=== PATIENT | male | born 1985 | race Caucasian/White ===

== ENCOUNTER 2016-06-01 13:18 | Emergency (ER) | payer OTHER ==
[~2016-06-01] VITALS: Ht 170.2 cm; Wt 69.5 kg
[2016-06-01 14:03] LABS: ADD MIUA? YES; BILIRUBIN NEGATIVE; BLOOD LARGE; COLOR YELLOW ((YELLOW)); GLUCOSE (STRIP) NEGATIVE; KETONES NEGATIVE; LEUKOCYTES NEGATIVE; NITRITE NEGATIVE; PH, URINE 7.5 (5-8); PROTEIN (STRIP) NEGATIVE; SPECIFIC GRAVITY 1.011 (1.000-1.030); UROBILINOGEN 0.2 MG/DL (0.2-1.0)
[2016-06-01 14:14] LABS: HEMATOCRIT 46.4 % (38.0-50.0); MCH 28.6 PG (29.0-34.0); MCHC 34.9 G/DL (30.0-36.0); MCV 81.8 FL (86-99); MEAN PLAT.VOLUME 8.5 uM^3 (9.0-12.4); PLATELET COUNT 273 K/uL (156-360); RBC DIS.WIDTH-CV 12.5 % (11.8-14.6); RBC DIS.WIDTH-SD 36.9 % (39-53); RED BLOOD COUNT 5.67 M/uL (4.00-5.50); WHITE BLOOD COUNT 7.9 K/uL (4.1-10.2)
[2016-06-01 14:21] LABS: CHLORIDE 106 mEq/L (99-109)
[2016-06-01 14:22] LABS: POTASSIUM 4.1 mEq/L (3.7-5.4); SODIUM 138 mEq/L (136-147)
[2016-06-01 14:24] LABS: GLUCOSE 106 mg/dL (70-99)
[2016-06-01 14:25] LABS: ANION GAP 7 MEQ/L (2-14)
[2016-06-01 14:26] LABS: TOTAL BILIRUBIN 0.5 mg/dL (0.0-1.0)
[2016-06-01 14:27] LABS: ALKALINE PHOSPHATASE 57 IU/L (3-129)
[2016-06-01 14:29] LABS: DIRECT BILIRUBIN 0.2 mg/dL (0.0-0.3); UREA NITROGEN (BUN) 9 mg/dL (9-23)
[2016-06-01 14:31] LABS: GFR ESTIMATE (CALCULATED) > 59 mL/min/; LIPASE 19 U/L (1.0-51.0)
[2016-06-01 14:47] LABS: EPITHELIAL CELLS NONE SEEN; MUCUS NONE SEEN; RED BLOOD CELLS 15-20 /HPF (0-5); WHITE BLOOD CELLS NONE SEEN /HPF (0-5)
[2016-06-01 14:48] LABS: BACTERIA RARE; CASTS NONE SEEN /LPF; CRYSTALS NONE SEEN; UCUL ADDED? NO
[2016-06-01 16:18] VITALS: BP 142/81
== END 2016-06-01 16:39 | disposition home or self-care (01) ==
LOC: EME 13:18 → RME 13:18
DX: R10.84 Generalized abdominal pain (principal); R31.9 Hematuria, unspecified; Z87.442 Personal history of urinary calculi; Z88.0 Allergy status to penicillin
CPT/HCPCS: 74176; 80048; 80076; 81003; 83690; 85027; 99281; 99284; J1885

== ENCOUNTER 2016-09-18 16:48 | Emergency (ER) | payer OTHER ==
[~2016-09-18] VITALS: Ht 170.2 cm; Wt 83.2 kg
[2016-09-18 17:42] LABS: HEMATOCRIT 41.9 % (38.0-50.0); MCH 27.9 PG (29.0-34.0); MCHC 33.7 G/DL (30.0-36.0); MEAN PLAT.VOLUME 8.7 uM^3 (9.0-12.4); PLATELET COUNT 287 K/uL (156-360); RBC DIS.WIDTH-CV 12.1 % (11.8-14.6); RBC DIS.WIDTH-SD 36.4 % (39-53); RED BLOOD COUNT 5.05 M/uL (4.00-5.50)
[2016-09-18 17:52] LABS: CHLORIDE 104 mEq/L (99-109); POTASSIUM 3.7 mEq/L (3.7-5.4); SODIUM 140 mEq/L (136-147)
[2016-09-18 17:53] LABS: GLUCOSE 114 mg/dL (70-99)
[2016-09-18 17:55] LABS: ANION GAP 11 MEQ/L (2-14)
[2016-09-18 17:57] LABS: GFR ESTIMATE (CALCULATED) > 59 mL/min/
[2016-09-18 17:58] LABS: UREA NITROGEN (BUN) 14 mg/dL (9-23)
[2016-09-18] MEDS ORDERED: PERCOCET 5/31 TABLET PO (20:09)
[2016-09-18 21:15] VITALS: BP 147/94
== END 2016-09-18 21:20 ==
LOC: EME 16:48
PROVIDERS: Emergency Medicine
DX: L03.114 Cellulitis of left upper limb (principal); Z86.14 Personal history of Methicillin resistant Staphylococcus aureus infection; Z87.891 Personal history of nicotine dependence
CPT/HCPCS: 80048; 85027; 87040; 87070; 87075; 87205; 93971; 99281; 99285; J1956; J3010; J3370; J7030

== ENCOUNTER 2016-09-20 18:46 | Emergency (ER) | payer OTHER ==
[~2016-09-20] VITALS: Ht 170.2 cm; Wt 74.7 kg
[~2016-09-20 18:46] MED LIST: PERCOCET 5/31 TABLET PO
[2016-09-20 19:59] LABS: EOSINOPHIL (%) 1.7 % (0-5); EOSINOPHIL COUNT 0.3 K/uL (0-0.3); HEMATOCRIT 41.8 % (38.0-50.0); IMMATURE GRANULOCYTE (%) 0.7 % (0.0-0.7); IMMATURE GRANULOCYTE COUNT 0.1 K/uL; INSTRUMENT ABS NEUTROPHIL CT 11.9 K/uL; LYMPHOCYTE COUNT 1.5 K/uL (1.0-2.8); MCH 28.1 PG (29.0-34.0); MCHC 33.5 G/DL (30.0-36.0); MCV 83.9 FL (86-99); MEAN PLAT.VOLUME 8.6 uM^3 (9.0-12.4); MONOCYTE (%) 8.4 % (3-12); MONOCYTE COUNT 1.3 K/uL (0-0.8); NEUTROPHIL COUNT 11.9 K/uL (1.8-6.4); PLATELET COUNT 331 K/uL (156-360); RBC DIS.WIDTH-CV 11.9 % (11.8-14.6); RBC DIS.WIDTH-SD 36.2 % (39-53); RED BLOOD COUNT 4.98 M/uL (4.00-5.50)
[2016-09-20 20:07] LABS: CHLORIDE 104 mEq/L (99-109); SODIUM 139 mEq/L (136-147)
[2016-09-20 20:09] LABS: GLUCOSE 136 mg/dL (70-99)
[2016-09-20 20:10] LABS: ANION GAP 9 MEQ/L (2-14)
[2016-09-20 20:11] LABS: TOTAL BILIRUBIN 0.3 mg/dL (0.0-1.0)
[2016-09-20 20:12] LABS: ALKALINE PHOSPHATASE 61 IU/L (3-129)
[2016-09-20 20:13] LABS: GFR ESTIMATE (CALCULATED) > 59 mL/min/
[2016-09-20 20:14] LABS: UREA NITROGEN (BUN) 11 mg/dL (9-23)
[2016-09-21 00:25] VITALS: BP 113/77
== END 2016-09-21 00:13 | disposition short-term general hospital (02) ==
LOC: EME 18:46
PROVIDERS: Emergency Medicine
DX: L03.114 Cellulitis of left upper limb (principal); Z87.891 Personal history of nicotine dependence; Z88.0 Allergy status to penicillin; Z87.442 Personal history of urinary calculi; Z86.14 Personal history of Methicillin resistant Staphylococcus aureus infection
CPT/HCPCS: 73201; 80053; 83605; 85025; 87040; 99281; 99285; J0692; J1170; J1885; J2270; J2405; J3370; J7050